=== PATIENT | male | born 1985 | race Caucasian/White ===

== ENCOUNTER 2021-05-21 13:16 | Outpatient (CLI) | payer OTHER, SELFPAY ==
--- NOTE | ~2021-05-21 | XR_ITS ---
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 Hyperglycemia. TECHNIQUE: PA and lateral views COMPARISON: None FINDINGS: The lungs are hyperinflated. No hilar or mediastinal enlargement. Normal heart size. No pulmonary infiltrate or consolidation. No pulmonary vascular congestion or pleural effusion or pneum othorax. IMPRESSION: Bilateral hyperinflation Reviewed, dictated and finalized at location A. HER VISUALLY IMPAIRED IMPRESSION: Bilateral hyperinflation
== END 2021-05-21 13:17 | disposition home or self-care (01) ==
LOC: ANHIMG 13:23
PROVIDERS: PCP Family Medicine; Visit Provider Family Medicine
DX: R73.9 Hyperglycemia, unspecified (principal); U09.9 Post COVID-19 condition, unspecified
CPT/HCPCS: 71046

== ENCOUNTER 2023-01-28 00:53 | Day surgery (SDC) | payer OTHER, SELFPAY ==
[2023-01-15 15:45] VITALS: BMI 22.6
--- NOTE | 2023-01-27 09:32 | WPDANESEPPF ---
Anes - Initial Pre Proc Eval Procedure: Operation Date: 01/28/23 09:30 Proposed Procedures p Esophagogastroduodenoscopy - Kumar Smyth MD Date/Time: 01/27/23 09:32 Surgeon: Kumar Smyth MD Pre Op Diagnosis: dysphagia Patient Data Age: 38 Gender: M Height: 1.91 m Weight: 82 kg Allergies Allergy/AdvReac Type Severity Reaction Status Date / Time No Known Allergies Allergy Unknown Verified 01/28/23 08:18 Home Medications Medication Instructions Recorded Confirmed Type blood-glucose meter (Accu-Chek #1 ea 06/04/21 01/28/23 Rx Guide Me Glucose Meter) lancets (Accu-Chek Softclix #100 ea 06/04/21 01/28/23 Rx Lancets) blood sugar diagnostic (Accu-Chek #100 strips 11/14/21 01/28/23 Rx SmartView Test Strips) blood sugar diagnostic (Accu-Chek #100 ea 12/06/21 01/28/23 Rx SmartView Test Strips) insulin aspart sliding scale dose subcut 01/15/23 History (niacinamide)(U-100) 100 unit/mL(3 mL) subcutaneous pen (Fiasp FlexTouch U-100 Insulin) insulin degludec 100 unit/mL (3 15 unit subcut 1200 01/15/23 01/28/23 History mL) subcutaneous pen (Tresiba FlexTouch U-100 insulin) metformin 500 mg tablet 500 mg PO BID 01/15/23 01/28/23 History Patient hx anesthesia problems: none Family hx anesthesia problems: none Results Review: All pre-operative results and documents have been reviewed as part of the pre-operative evaluation. [facility] Past Medical History Medical History (Updated 01/27/23 @ 09:32 by Nir Khan DO) Diabetes type 1, controlled GERD (gastroesophageal reflux disease) MORENO (obstructive sleep apnea) Family History Family History Mother Diabetes mellitus Family history of hypercholesterolemia Hypertension Father Family history of hypercholesterolemia Family history of liver disease Malignant neoplasm of prostate Patient's father is , Onset Age: 72 Social History Social History Social History: Smoking status: Never smoker Second hand tobacco smoke exposure: No Alcohol intake: never Alcohol use details: Occasionally Substance use: never Substance use type: does not use Living arrangements: with family Occupation/Education: occupation Gender identity (if verbalized by the patient): Male Sexual Orientation (if Verbalized by the Patient): Straight or Heterosexual Spiritual care concerns: No Anes - Eval Final PreProcedure Day of Procedure 01/27/23 09:32 Patient weight: normal Heart: regular rate and rhythm Lungs: clear to auscultation and normal air movement Airway: Mallampati scale class II Neurological: alert and oriented Last oral intake: >/= 8 hours ASA classification: III Emergent: no Anesthetic plan: proceed Anesthesia type and monitoring: general GIVS and standard monitoring Results Review: All pre-operative results and documents have been reviewed as part of the pre-operative evaluation. Informed Consent: The patient's anesthetic plan and its attendant risks and benefits were discussed with the patient/family/POA. Questions were solicited and answers provided to the satisfaction of the patient/family/POA.
[2023-01-28 08:10] VITALS: BP 133/83; PULSE 81; RESP 18; TEMP 36.2; O2SAT 100; BMI 22.3
[2023-01-28] MEDS: LACTATED RINGERS 1,000 ML 150 ML IV CONT (08:28)
[2023-01-28 08:30] LABS: Glucose Point of Care 129 mg/dl (65-105)
--- NOTE | 2023-01-28 08:55 | PM.HPGS ---
History of Present Illness History of Present Illness Consent: Risks, benefits, and alternatives have been discussed and questions answered. Patient agrees to proceed with procedure. Chief complaint: dysphagia Narrative: Gera Cunningham is a 38 year old male Presents for EGD. Patient reports that food will catch in the low mid substernal area of the chest. This happens mainly with solid foods such as meat but also with rice, chicken. Patient has a distant history of a food impaction. He was found to have esophageal narrowing suspicious for eosinophilic esophagitis. Patient initially treated with Nexium but discontinued this after a year. Patient denies any heartburn. Patient presents now for follow-up having recurrent dysphagia. Patient denies any weight loss. He has had no bleeding. Family history noncontributory. Review of Systems Review of Systems: Review of systems noncontributory. [facility] Past Medical History Medical History (Updated 01/28/23 @ 08:57 by Kumar Smyth MD) Diabetes type 1, controlled GERD (gastroesophageal reflux disease) MORENO (obstructive sleep apnea) Family History Family History Mother Diabetes mellitus Family history of hypercholesterolemia Hypertension Father Family history of hypercholesterolemia Family history of liver disease Malignant neoplasm of prostate Patient's father is , Onset Age: 72 Social History Social History Social History: Smoking status: Never smoker Second hand tobacco smoke exposure: No Alcohol intake: never Alcohol use details: Occasionally Substance use: never Substance use type: does not use Living arrangements: with family Occupation/Education: occupation Gender identity (if verbalized by the patient): Male Sexual Orientation (if Verbalized by the Patient): Straight or Heterosexual Spiritual care concerns: No Meds Home Medications and Allergies Home Medications Medication Instructions Recorded Confirmed Type blood-glucose meter (Accu-Chek #1 ea 06/04/21 01/28/23 Rx Guide Me Glucose Meter) lancets (Accu-Chek Softclix #100 ea 06/04/21 01/28/23 Rx Lancets) blood sugar diagnostic (Accu-Chek #100 strips 11/14/21 01/28/23 Rx SmartView Test Strips) blood sugar diagnostic (Accu-Chek #100 ea 12/06/21 01/28/23 Rx SmartView Test Strips) insulin aspart sliding scale dose subcut 01/15/23 History (niacinamide)(U-100) 100 unit/mL(3 mL) subcutaneous pen (Fiasp FlexTouch U-100 Insulin) insulin degludec 100 unit/mL (3 15 unit subcut 1200 01/15/23 01/28/23 History mL) subcutaneous pen (Tresiba FlexTouch U-100 insulin) metformin 500 mg tablet 500 mg PO BID 01/15/23 01/28/23 History Allergies Allergy/AdvReac Type Severity Reaction Status Date / Time No Known Allergies Allergy Unknown Verified 01/28/23 08:18 Vital Signs Vital Signs - 24 hr 01/28/23 08:10 Temperature 97.1 F L Pulse Rate 81 Respiratory Rate 18 Blood Pressure 133/83 Pulse Oximetry 100 Oxygen Delivery Room Air Exam Narrative: Physical exam reveals patient to be alert. Vital signs stable. HEENT exam is unremarkable. Patient is anicteric. Lungs are clear to auscultation and percussion. Heart is without murmur or extra sounds. Abdomen bowel sounds are present soft nontender with no organomegaly. Rectal exam is Deferred. Assessment and Plan Assessment and plan (1) Dysphagia: Code(s): R13.10 - Dysphagia, unspecified Status: Acute Assessment and Plan: Patient with dysphagia. Plan for EGD to assess more thoroughly. If he has esophageal narrowing which is suspected dilatation will be performed. He quite likely this on the basis of previously established eosinophilic esophagitis. Patient currently not on medications this will be reassessed at time o
[2023-01-28 10:06] VITALS: BP 118/75; PULSE 79; RESP 20; O2SAT 100
[2023-01-28 10:15] LABS: Glucose Point of Care 122 mg/dl (65-105)
[2023-01-28 10:16] VITALS: BP 115/75; PULSE 70; RESP 18; O2SAT 99
[2023-01-28 10:26] VITALS: BP 135/91; PULSE 68; RESP 14; O2SAT 99
== END 2023-01-28 10:34 | disposition home or self-care (01) ==
PROVIDERS: PCP Family Medicine; Visit Provider Internal Medicine Gastroenterology
PROC: 0DJ08ZZ Inspection of Upper Intestinal Tract, Via Natural or Artificial Opening Endoscopic (ICD-10-PCS; CPT 43235; principal; 2023-01-28 09:30)
DX: K20.0 Eosinophilic esophagitis (principal); R13.10 Dysphagia, unspecified; E10.9 Type 1 diabetes mellitus without complications; G47.33 Obstructive sleep apnea (adult) (pediatric); Z79.4 Long term (current) use of insulin; Z79.84 Long term (current) use of oral hypoglycemic drugs
CPT/HCPCS: 43450; 43239; 82948; 88305; J2704; J7120